=== PATIENT | female | born 1975 | race African-American/Black ===

== ENCOUNTER 2023-10-16 13:48 | Emergency (ER) | payer MEDICAID, SELFPAY ==
[2023-10-16 13:55] VITALS: BP 126/79; PULSE 83; RESP 16; TEMP 36.6; O2SAT 100
--- NOTE | 2023-10-16 14:31 | ED.DENTAL ---
HPI - Dental/Oral General Chief complaint: Dental/Oral Stated complaint: Tooth Pain Source: patient, RN notes reviewed and old records reviewed Mode of arrival: ambulatory Limitations: no limitations History of Present Illness HPI Narrative: 47-year-old female presents to [facility] with complaints left upper dental pain this started several weeks ago. Patient states history being seen by dentist, And patient has follow-up appointment tomorrow. Patient here for pain control. Patient is already on Tylenol #3 and Ultram and penicillin. Patient states wanting lidocaine to apply tooth. Related Data Home Medications Medication Instructions Recorded Confirmed acetaminophen 300 mg-codeine 30 mg tablet 10/16/23 tablet amlodipine 10 mg tablet 10 mg PO DAILY 10/16/23 10/16/23 azelastine 137 mcg (0.1 %) nasal 2 spray intranasal DAILY 10/16/23 10/16/23 spray aerosol cyclobenzaprine 10 mg tablet 10 mg PO DAILY 10/16/23 10/16/23 dicyclomine 20 mg tablet 20 mg PO DAILY 10/16/23 10/16/23 doxycycline hyclate 100 mg capsule 100 mg PO DAILY 10/16/23 10/16/23 famotidine 20 mg tablet 20 mg PO DAILY 10/16/23 10/16/23 fluticasone propionate 50 50 mcg intranasal DAILY 10/16/23 10/16/23 mcg/actuation nasal spray,suspension hydrochlorothiazide 25 mg tablet 25 mg PO DAILY 10/16/23 10/16/23 lidocaine HCl 2 % mucosal solution 5 ml topical DAILY 10/16/23 10/16/23 (Lidocaine Viscous) omeprazole 20 mg capsule,delayed 20 mg PO DAILY 10/16/23 10/16/23 release pantoprazole 40 mg tablet,delayed 40 mg PO BID 10/16/23 10/16/23 release penicillin V potassium 500 mg 500 mg PO QID 10/16/23 10/16/23 tablet sucralfate 100 mg/mL oral 100 ml PO QID 10/16/23 10/16/23 suspension tramadol 50 mg tablet 50 mg PO DIRECTED 10/16/23 10/16/23 Allergies Allergy/AdvReac Type Severity Reaction Status Date / Time No Known Allergies Allergy Verified 10/16/23 14:31 Review of Systems Constitutional: Constitutional: Reports no additional constitutional complaints, Denies body ache(s), Denies chills, Denies fatigue, Denies fever(s) and Denies headache(s) Eyes: Eyes: Reports no additional eye complaints and Denies blurry vision ENT: Reports system reviewed and no additional complaints, except as documented, Denies vertigo, Denies dizziness, Denies ear discharge, Denies otalgia, Denies facial pain, Denies headache(s), Denies nasal congestion, Denies nasal discharge, Denies sinus pain, Denies sinus pressure and Denies sore throat Comments: Dental pain Cardiovascular: Cardiovascular: Reports no additional cardiovascular complaints, Denies chest pain, Denies chest pain at rest, Denies rapid heart rate and Denies dyspnea Respiratory: Respiratory: Reports no additional respiratory complaints, Denies chest congestion, Denies cough, Denies pain on inspiration, Denies pain with cough and Denies dyspnea Gastrointestinal: Gastrointestinal: Denies abdominal pain, Denies diarrhea, Denies nausea and Denies vomiting Integumentary/Breasts: Skin/Breast: Denies rash Neurologic: Reports system reviewed and no additional complaints, except as documented, Denies vertigo, Denies dizziness and Denies headache(s) Endocrine: Endocrine: Denies fatigue PMFSH Comments At the time of my signature, I reviewed and agree with the nursing past medical, surgical, social, and family history. There is no relevant family history pertinent to the patient complaint. Exam Const: General: cooperative, healthy appearing, no acute distress and well nourished Nutritional Appearance: well nourished Orientation/consciousness: patient oriented x3 Limitations: no limitations HENMT: Head: normal to inspection and normocephalic Ears: external ears normal, TM's normal bilaterally, mastoids normal and Abnormal EAC present Face/Nose/Sinus: normal facial exam Face and sinus: normal facial exam Mouth: Yes Normal oral and palatal mucosa present, Yes oropharynx normal and Yes moist
== END 2023-10-16 14:39 | disposition home or self-care (01) ==
PROVIDERS: Emergency Provider Registered Nurse; PCP Internal Medicine
DX: S02.5XXA Fracture of tooth (traumatic), initial encounter for closed fracture (principal); Z79.899 Other long term (current) drug therapy; X58.XXXA Exposure to other specified factors, initial encounter
CPT/HCPCS: 99213; G0463